=== PATIENT | male | born 1985 | race Caucasian/White ===

== ENCOUNTER 2016-12-07 11:06 | Emergency (ER) | payer MEDICAID ==
[2016-12-07 11:14] VITALS: RESP 16
--- NOTE | 2016-12-07 11:35 | EDPHY ---
H & P Stated Complaint: mid abd pain x 3 days "burning", no nausea normal stool Time Seen by Provider: 12/07/16 11:15 HPI/ROS: CHIEF COMPLAINT: abdominal pain HISTORY OF PRESENT ILLNESS: 31-year-old male presents emergency department complaining of a 3 day history of intermittent mid abdominal burning that is relieved with eating. Patient reports he has been taking 2 ibuprofen twice a day starting 5 or 6 days ago for a headache that he thinks was allergy related, his sister was in town last week in and he drink more alcohol than he usually does and he has been drinking more caffeine than he usually does. Patient denies nausea, no vomiting, no diarrhea. Last normal bowel movement was yesterday. He denies fevers or chills. Patient states that Tums relieve his symptoms. He denies previous symptoms similar, no fevers, no gas or bloating. REVIEW OF SYSTEMS: A comprehensive 10 point review of systems is otherwise negative aside from elements mentioned in the history of present illness. Source: Patient Exam Limitations: No limitations - Personal History Current Tetanus/Diphtheria Vaccine: Unsure Current Tetanus Diphtheria and Acellular Pertussis (TDAP): Unsure Tetanus Vaccine Date: 2013 - Medical/Surgical History Hx Asthma: No Hx Chronic Respiratory Disease: No Hx Diabetes: No Hx Cardiac Disease: No Hx Renal Disease: No Hx Cirrhosis: No Hx Alcoholism: No Hx HIV/AIDS: No Hx Splenectomy or Spleen Trauma: No Other PMH: denies PMH. no past surgeries - Social History Smoking Status: Never smoked - Physical Exam Exam: Physical Exam Gen: Alert and Oriented, NAD HEENT: PERRL, moist mucous membranes NECK: no meningismus CV: regular rate and regular rhythm PULM: CTAB, no wheezes ABDOMEN: soft, mild epigastric tenderness to palpation, no masses, no peritoneal signs, no right upper quadrant tenderness, no right lower quadrant tenderness BS present BACK: No CVA tenderness NEURO: Neurologically grossly intact EXTREMITIES: normal appearing SKIN: no rash or break in skin on exposed skin PSYCH: answers questions appropriately. Constitutional: Initial Vital Signs Temperature (C) 36.8 C 12/07/16 11:12 Heart Rate 52 L 12/07/16 11:12 Respiratory Rate 16 12/07/16 11:12 Blood Pressure 130/45 H 12/07/16 11:12 O2 Sat (%) 98 12/07/16 11:12 O2 Delivery Mode Room Air Allergies/Adverse Reactions: No Known Allergies Allergy (Unverified 04/22/16 15:00) Home Medications: Medication Instructions Recorded NK [No Known Home Meds] 04/22/16 Medical Decision Making ED Course/Re-evaluation: 31-year-old male presents emergency department with gastritis symptoms x3 days. Patient reports this started after drinking more alcohol, more caffeine and taking more ibuprofen than he usually does in the last week. Abdominal exam is benign, vital signs are normal, patient is given a GI cocktail with resolution of his symptoms. Patient has no lightheadedness, dizziness, shortness of breath or chest pain, no vomiting, normal bowel movements without blood. Patient has no evidence of a GI bleed. He will be discharged home. I recommended he start taking Prilosec 20 mg daily for 1 week. He has been given education information on a diet for gastritis. Patient is given strict return precautions for any worsening symptoms, new symptoms or concerns. Differential Diagnosis: Diagnosis considered but not limited to gastritis, gastroenteritis, esophageal varices, gastric ulcer. - Data Points Medications Given: Discontinued Medications Al Hydroxide/Mg Hydroxide (Maalox Susp) 30 ml PO ONCE ONE Stop: 12/07/16 12:31 Last Admin: 12/07/16 12:37 Dose: 30 ml Hyoscyamine Sulfate (Levsin, Hyomax-Sl) 0.25 mg PO ONCE ONE Stop: 12/07/16 12:31 Last Admin: 12/07/16 12:37 Dose: 0.25 mg Lidocaine (Lidocaine 2% Viscous) 15 ml PO ONCE ONE Stop: 12/07/16 12:31 Last Admin: 12/07/16 12:37 Dose: 15 ml Departure - Departure Disposition: Home, Routine, Self-Care Clinical Impression: Gastritis Qualifiers: Gastritis type: unspecified gastritis Chronicity: acute Gastritis bleeding: without bleeding Qualified Code(s): K29.00 - Acute gastritis without bleeding Condition: Good Instructions: Gastritis (ED), Diet for Stomach Ulcers and Gastritis (ED) Additional Instructions: Start taking 20 mg Prilosec daily for 7 days 30 minutes before eating, eat a bland diet, avoid spicy, greasy, acidic foods, eat frequently. Stop taking ibuprofen, decrease your caffeine intake, avoid alcohol. Return to the emergency department for any fevers, vomiting, blood in your stool or vomit. Follow up with the ergonomic specialist for symptoms that are not improving in the next 7-10 days. Referrals: Renaldo Cornejo MD [Medical Doctor] - As per Instructions (Property Appraiser on- call)
[2016-12-07] MEDS ORDERED: HYOSCYAMINE SULFATE 0.125 MG TAB PO ONE (12:30)
[2016-12-07] MEDS ORDERED: LIDOCAINE 2% VISCOUS 15 ML UDCUP PO ONE (12:30)
[2016-12-07] MEDS ORDERED: MAG HYDROX/AL HYDROX/SIMETH 30 ML UDCUP PO ONE (12:30)
[2016-12-07 12:53] VITALS: BP 131/62; PULSE 54; TEMP 97.9; O2SAT 96
== END 2016-12-07 12:59 | disposition home or self-care (01) ==
DX: K29.00 Acute gastritis without bleeding (principal)